=== PATIENT | female | born 1985 | race Caucasian/White ===

== ENCOUNTER → 2018-01-29 15:48 | Outpatient (CLI) | payer OTHER, SELFPAY ==
[2018-01-29 18:13] LABS: Hemoglobin A1c 5.2 % (4.2-6.3)
== END ==
PROVIDERS: Visit Provider Obstetrics & Gynecology
DX: E55.9 Vitamin D deficiency, unspecified (principal); E28.2 Polycystic ovarian syndrome
CPT/HCPCS: 36415; 82306; 83036

== ENCOUNTER → 2021-03-25 | Outpatient (CLI) | payer OTHER, SELFPAY ==
[2021-03-29 16:34] LABS: HPV APTIMA, High Risk Negative (Negative)
== END | disposition home or self-care (01) ==
LOC: LABSPEC 10:38
PROVIDERS: Visit Provider Obstetrics & Gynecology
DX: Z12.4 Encounter for screening for malignant neoplasm of cervix (principal)
CPT/HCPCS: 87624; 88175; G0145